=== PATIENT | female | born 1960 | race Hispanic/Latino ===

== ENCOUNTER 2021-05-16 14:29 | Outpatient (CLI) | payer OTHER ==
[~2021-05-16 14:29] MED LIST: Iopamidol 370 76% 100 ML VIAL ONE
[2021-05-16 15:13] LABS: Estimated GFR-MDRD - POC Greater than 90
== END 2021-05-16 14:30 | disposition home or self-care (01) ==
LOC: BICCT 14:29
PROVIDERS: ATTEND Nurse Practitioner Family
DX: R07.89 Other chest pain (principal); R91.1 Solitary pulmonary nodule
CPT/HCPCS: 71260; 82565; Q9967

== ENCOUNTER 2021-11-19 10:09 | Outpatient (CLI) | payer OTHER ==
[~2021-11-19 10:09] MED LIST changes: -Iopamidol 370 76% 100 ML VIAL ONE; +Iopamidol-370 76% 500 ML 1 ML ONE
[2021-11-19 11:04] LABS: Estimated GFR-MDRD - POC Greater than 90
== END 2021-11-19 10:10 | disposition home or self-care (01) ==
LOC: BICCT 10:09
PROVIDERS: ATTEND Nurse Practitioner Family
DX: R91.1 Solitary pulmonary nodule (principal); R91.8 Other nonspecific abnormal finding of lung field
CPT/HCPCS: 71260; 82565; Q9967

== ENCOUNTER 2023-05-26 13:07 | Outpatient (CLI) | payer MEDICARE ==
[~2023-05-26 13:07] MED LIST changes: +Iopamidol 370 76% 100 ML VIAL ONE; -Iopamidol-370 76% 500 ML 1 ML ONE
== END 2023-05-26 13:08 | disposition home or self-care (01) ==
LOC: BICCT 13:07
PROVIDERS: ATTEND Family Medicine
DX: I67.1 Cerebral aneurysm, nonruptured (principal); Z98.890 Other specified postprocedural states
CPT/HCPCS: 70496; 82565; Q9967

== ENCOUNTER 2024-03-21 09:53 | Outpatient (CLI) | payer MEDICARE | END 2024-03-21 09:54 | disposition home or self-care (01) | LOC: BICMAMMO 09:53 | PROVIDERS: ATTEND Family Medicine | DX: Z12.31 Encounter for screening mammogram for malignant neoplasm of breast (principal); Z13.820 Encounter for screening for osteoporosis; N63.21 Unspecified lump in the left breast, upper outer quadrant; M85.851 Other specified disorders of bone density and structure, right thigh; M85.852 Other specified disorders of bone density and structure, left thigh; Z80.3 Family history of malignant neoplasm of breast; Z78.0 Asymptomatic menopausal state; Z90.11 Acquired absence of right breast and nipple | CPT/HCPCS: 77063; 77067; 77080 ==